=== PATIENT | male | born 1975 | race Caucasian/White ===

== ENCOUNTER 2021-02-16 13:51 | Emergency (ER) | payer MEDICAID ==
[~2021-02-16] VITALS: Ht 167.6 cm; Wt 61.0 kg
[2021-02-16] MEDS ORDERED: ACETAMINOPHEN 500MG TABLET PO ONE (14:30)
[2021-02-16 14:44] VITALS: BP 133/68
[2021-02-16] MEDS ORDERED: KETOROLAC 30MG/ML VIAL IM ONE (14:45)
[2021-02-16] MEDS ORDERED: CYCL7.5T25 MT (15:50)
== END 2021-02-16 16:08 | disposition home or self-care (01) ==
LOC: ER 13:51
DX: M25.511 Pain in right shoulder (principal); M25.562 Pain in left knee; I10 Essential (primary) hypertension; Z99.2 Dependence on renal dialysis
CPT/HCPCS: 73030; 73562; 82962; 96372; 99284; J1885

== ENCOUNTER 2021-11-29 15:17 | Emergency (ER) | payer MEDICAID, OTHER ==
[~2021-11-29] VITALS: Ht 172.7 cm; Wt 61.0 kg
[~2021-11-29 15:17] MED LIST: CYCL7.5T25 MT
[2021-11-29 15:59] VITALS: BP 157/91
[2021-11-29 23:32] LABS: CHLORIDE 99 mEq/L (98-107)
[2021-11-30] MEDS ORDERED: SODIUM POLYSTYRENE SULFONATE 15 G/60 ML BOT PO NR
[2021-11-30] MEDS ORDERED: SODI15OR5 MT (00:25)
== END 2021-11-30 01:53 | disposition home or self-care (01) ==
LOC: ER 15:40
DX: I13.11 Hypertensive heart and chronic kidney disease without heart failure, with stage 5 chronic kidney disease, or end stage renal disease (principal); E87.5 Hyperkalemia; N18.6 End stage renal disease; Z99.2 Dependence on renal dialysis
CPT/HCPCS: 36415; 71045; 80053; 99284